=== PATIENT | male | born 1980 | race Caucasian/White ===

== ENCOUNTER 2020-11-25 09:47 | Emergency (ER) | payer SELFPAY ==
[2020-11-25] MEDS ORDERED: Iopamidol 370 76% 100 ML VIAL IV ONE (09:48)
[2020-11-25] MEDS ORDERED: Morphine 4 MG/ML VIAL ONE (10:29)
[2020-11-25] MEDS ORDERED: Sodium Chloride 0.9% 1,000 ML ONE (10:29)
[2020-11-25 10:40] LABS: Albumin 4.8 g/dL (3.5-5.0); Chloride 107 mmol/L (98-107); Potassium 4.8 mmol/L (3.5-5.1); Sodium 148 mmol/L (136-145)
[2020-11-25 10:42] LABS: Hemoglobin 15.4 g/dL (14.0-18.0); Mean Corpuscular HGB CONC 31.5 g/dL (32.0-36.0); Mean Corpuscular Hemoglobin 30.8 pg (27.0-31.0); Mean Corpuscular Volume 97.7 fL (78.0-98.0); Mean Platelet Volume 7.1 fL (7.4-10.4); Platelet Count 463 thou/uL (130-400); RBC Distribution Width 12.5 % (11.5-14.5); Red Blood Cell (RBC) Count 5.02 mill/uL (4.70-6.10); White Blood Cell (WBC) Count 23.2 thou/uL (4.8-10.8)
[2020-11-25 10:58] LABS: Band 6 % (5-11); Lymphocytes 5 % (21-51); MDiff Complete? YES; Manual Diff?? YES; Monocytes 4 % (0-10); Neutrophil 85 % (42-75)
[2020-11-25 10:59] LABS: Anisocytosis SLIGHT = 6-15 cells (100X) (0-5/hpf)
[2020-11-25 11:00] LABS: Platelet Morphology Comment Appears Increased
[2020-11-25] MEDS ORDERED: Lorazepam 2 MG/ML VIAL ONE (11:20)
[2020-11-25 11:34] LABS: ALT (SGPT) 19 U/L (8-55); AST (SGOT) 17 U/L (5-34); Alkaline Phosphatase 92 U/L (40-110); Anion Gap 22 mmol/L (10-20); BUN (Urea Nitrogen) 12 mg/dL (8.9-20.6); Bilirubin, Total 0.3 mg/dL (0.2-1.2); Calc. Creatinine Clearance 0 mL/min (70-130); Calcium 10.2 mg/dL (7.8-10.44); Carbon Dioxide 23 mmol/L (22-29); Globulin 3.4 g/dL (2.4-3.5); Glucose 109 mg/dL (70-105); Lipase 21 U/L (8-78); Protein, Total 8.2 g/dL (6.0-8.3)
[2020-11-25] MEDS ORDERED: Sodium Chloride 0.9% 2,000 ML ONE (11:42)
[2020-11-25] MEDS ORDERED: Cefepime 1 GM VIAL ONE (12:01)
[2020-11-25] MEDS ORDERED: Haloperidol Lactate 5 MG/ML VIAL ONE (12:50)
[2020-11-25 14:28] LABS: Bilirubin Negative (Negative); Blood, Urine Moderate (Negative); Clarity Clear (Clear); Glucose, Urine (Dipstick) Negative (Negative); Ketone, Urine Negative (Negative); Leukocyte Negative (Negative); Nitrite Negative (Negative); Protein, Urine (Dipstick) 100 mg/dL (Neg-Trace); Specific Gravity, Urine 1.025 (1.005-1.030); Urobilinogen 0.2 mg/dL (Less than 2)
[2020-11-25 14:29] LABS: RBC/HPF 0-3 HPF (0-3); Sperm/HPF 1+ HPF (None Seen); Squamous Epithelial 0-3 HPF (0-3); WBC/HPF 0-3 HPF (0-3)
[2020-11-25 14:31] LABS: Lactic Acid 2.7 mmol/L (0.5-2.2)
[2020-11-25 14:42] LABS: Cocaine Metabolite Screen Not Detected (NotDetected); Phencyclidine (PCP) Not Detected (NotDetected); THC/Cannabinoid Screen Detected (NotDetected)
[2020-11-25 14:43] LABS: Amphetamine Detected (NotDetected); Barbiturates Screen Not Detected (NotDetected); Benzodiazepine Screen Detected (NotDetected); Medtox Control Line Valid? VALID (VALID); Methadone Not Detected (NotDetected); Methamphetamine Detected (NotDetected); Opiate Screen Detected (NotDetected); Oxycodone Screen Not Detected (NotDetected); Tricyclic Screen Not Detected (NotDetected)
== END 2020-11-25 17:30 | disposition home or self-care (01) ==
LOC: MADERS 09:47
DX: E86.0 Dehydration (principal); F15.10 Other stimulant abuse, uncomplicated; R25.1 Tremor, unspecified; F17.210 Nicotine dependence, cigarettes, uncomplicated; Z79.899 Other long term (current) drug therapy
CPT/HCPCS: 51701; 71045; 74177; 80053; 80306; 81003; 81015; 83605; 83690; 85025; 87040; 93005; 96365; 96372; 96375; J0692; J1630; J2060; J2270; J7050; Q9967